=== PATIENT | male | born 1970 | race Caucasian/White ===

== ENCOUNTER 2018-11-08 10:29 | Emergency (ER) | payer BC, OTHER ==
[2018-11-08 11:01] VITALS: BP 151/81
--- NOTE | 2018-11-08 11:36 | UC ---
Upper Extremity HPI - HPI Summary HPI Summary: 48-year-old male presents with complaints of right hand pain after accidentally striking it on a doorknob at work. He complains of pain, swelling, and ecchymosis over the MCP of the right middle finger. States pain worsens with movement. Has full range of motion. Denies numbness or tingling. Does report having tendon surgery to this same area in the past. - History of Current Complaint Chief Complaint: UCUpperExtremity Stated Complaint: INJURY TO RT HAND Time Seen by Provider: 11/08/18 11:07 Hx Obtained From: Patient Pain Intensity: 4 - Allergies/Home Medications Allergies/Adverse Reactions: Allergies Allergy/AdvReac Type Severity Reaction Status Date / Time No Known Allergies Allergy Verified 04/02/16 09:13 Home Medications: Home Medications Wimzfugr95/Folic AC/Nadh/Coq10 [Xyzbac 1 mg] 1 tab PO SEE INSTRUCTIONS 11/08/18 [History Confirmed 11/08/18] PMH/Surg Hx/FS Hx/Imm Hx Previously Healthy: Yes - Denies significant PMH - Surgical History Surgical History: Yes Surgery Procedure, Year, and Place: right middle finger ligament repair - Family History Known Family History: Positive: Non-Contributory - Social History Occupation: Employed Full-time Lives: With Family Alcohol Use: Weekly Alcohol Amount: 1-2 DRINKS/WEEK Substance Use Type: None Smoking Status (MU): Never Smoked Tobacco Have You Smoked in the Last Year: No - Immunization History Most Recent Tetanus Shot: UTD Review of Systems All Other Systems Reviewed And Are Negative: Yes Constitutional: Positive: Negative Skin: Positive: Bruising Respiratory: Positive: Negative Cardiovascular: Positive: Negative Gastrointestinal: Positive: Negative Genitourinary: Positive: Negative Motor: Negative: Weakness Neurovascular: Negative: Decreased Sensation Musculoskeletal: Positive: Other: - See HPI Neurological: Positive: Negative Physical Exam - Summary Physical Exam Summary: GENERAL APPEARANCE: Well developed, well nourished, alert and cooperative, and appears to be in no acute distress. CARDIAC: Normal S1 and S2. No S3, S4 or murmurs. Rhythm is regular. There is no peripheral edema, cyanosis or pallor. Extremities are warm and well perfused. Capillary refill is less than 2 seconds. Peripheral pulses intact. LUNGS: Clear to auscultation without rales, rhonchi, wheezing or diminished breath sounds. ABDOMEN: Positive bowel sounds. Soft, nondistended, nontender. No guarding or rebound. No masses or hepatosplenomegally. MUSKULOSKELETAL: Mild tenderness over the MCP of his right middle finger with mild ecchymosis, swelling, and a superficial abrasion approximately 0.5 cm in diameter. No erythema or drainage is noted. Circulation and sensation intact distally. NEUROLOGICAL: Strength and sensation symmetric and intact. SKIN: Skin normal color, texture and turgor. Triage Information Reviewed: Yes Vital Signs: Initial Vital Signs Temp 98.3 F 11/08/18 10:53 Pulse 61 11/08/18 10:53 Resp 18 11/08/18 10:53 BP 151/81 11/08/18 10:53 Pulse Ox 96 11/08/18 10:53 Vital Signs Reviewed: Yes Diagnostics - Radiology No standard instances Radiology Interpretation Completed By: Radiologist Summary of Radiographic Findings: Patient Name: KAL HERNANDEZ . Ordering Physician: Keyon Ma NP Acct.#: [id number]. : 1970 Age: 48 Sex: M Location: [facility]. Exam Date: 11/08/18 1110 ADM Status: REG ER. Order Information: HAND - RIGHT MINIMUM 3 VIEWS. Accession Number: [id number]. CPT: 32033. HISTORY: pain swelling 3rd MCP s/p injury. COMPARISONS: October 15, 2015. VIEWS: 4 , Frontal, lateral, and oblique views of the right hand. FINDINGS: BONE DENSITY: Normal. BONES: There is post surgical change to the head of the third metacarpal. JOINTS: There is no arthropathy. ALIGNMENT: There is no dislocation. SOFT TISSUES: Unremarkable. OTHER FINDINGS: None. IMPRESSION: POST SURGICAL CHANGE. NO ACUTE OSSEOUS INJURY. Upper Extremity Course/Dx - Course Course Of Treatment: 48-year-old male presents with complaints of right hand pain after accidentally striking it on a doorknob at work. He complains of pain , swelling, and ecchymosis over the MCP of the right middle finger. States pain worsens with movement. Has full range of motion. Denies numbness or tingling. Does report having tendon surgery to this same area in the past. Afebrile. Patient is noted to be hypertensive otherwise vital signs are within normal parameters. Exam reveals an adult male in no acute distress with mild tenderness over the MCP of his right middle finger with mild ecchymosis, swelling, and a superficial abrasion approximately 0.5 cm in diameter. No erythema or drainage is noted. Hand x-ray shows some postoperative changes but no acute fracture or dislocation. Recommending symptomatic treatment with over- the-counter analgesics and RICE. He is to follow-up with orthopedic surgery in 7 days if symptoms do not improve. Anticipatory guidance and warning symptoms were reviewed with the patient. Verbalizes understanding and agrees with plan of care. - Differential Dx/Diagnosis Differential Diagnosis/HQI/PQRI: Contusion, Fracture (Closed), Strain, Sprain Provider Diagnosis: Contusion of right hand, Elevated blood pressure reading Discharge - Sign-Out/Discharge Documenting (check all that apply): Patient Departure All imaging exams completed and their final reports reviewed: Yes - Discharge Plan Condition: Stable Disposition: HOME Patient Education Materials: Contusion in Adults (ED) Forms: *Work Release Referrals: Clovis Villarreal MD [Primary Care Provider] - (Follow up within 4 weeks for blood pressure recheck) Mark Covington MD [Medical Doctor] - 7 Days (If no improvement in symptoms.) Additional Instructions: The x-ray of your hand performed in the clinic today showed some post-operative changes but no evidence of fracture. You likely have a bad contusion (bruise) of the hand. Rest it as much as possible. Avoid heavy lifting and strenuous activities until you are pain free. Apply ice to the affected area for 15-20 minutes at least 4 times a day for next few days to help with pain and swelling. Keep the hand elevated to reduce swelling. Take acetaminophen (Tylenol) or ibuprofen (Advil, Motrin) according to directions as needed for pain. Follow up with orthopedic surgery in 7 days if no improvement in symptoms. Your blood pressure was elevated in the clinic today. It is recommended that you follow within 4 weeks to have this rechecked. Seek immediate medical attention in the emergency room if you have severe pain that is not managed with pain medication, lose function of the hand, develop numbness or tingling in the hand or fingers, or have any worsening of symptoms. - Billing Disposition and Condition Condition: STABLE Disposition: Home - Attestation Statements Provider Attestation: Per institutional requirements, I have reviewed the chart, however, I was not consulted specifically or made aware of this patient by the midlevel provider. I did not personally evaluate, interact with , or disposition this patient.
== END 2018-11-08 11:54 | disposition home or self-care (01) ==
LOC: UCEAST 10:29
DX: S60.221A Contusion of right hand, initial encounter (principal); R03.0 Elevated blood-pressure reading, without diagnosis of hypertension; W22.8XXA Striking against or struck by other objects, initial encounter; Y92.9 Unspecified place or not applicable; Y99.0 Civilian activity done for income or pay
CPT/HCPCS: 99201; G0463